=== PATIENT | male | born 1940 | race Caucasian/White ===

== ENCOUNTER 2020-03-23 12:19 | Emergency (ER) | payer MEDICARE, SELFPAY ==
--- NOTE | ~2020-03-23 | XR_ITS ---
EXAMINATION: XR shoulder LT min 2V EXAM DATE: 03/23/2020 13:27 INDICATION: Initial encounter following injury, with pain of the left shoulder. TECHNIQUE: The following left shoulder projections obtained: frontal projection , [place], and scapul ar Y view (4 views). There is no prior study for comparison. FINDINGS: There are acute closed posttraumatic comminuted fracture through the neck and greater tuber osity of the left humeral head. Only mild displacement. No shoulder dislocation. Glenoid is unremarka ble. IMPRESSION: Acute comminuted left humeral neck/greater tuberosity fractures. Reviewed, dictated and finalized at location A. [facility]
[2020-03-23 12:31] VITALS: BP 167/65; PULSE 88; RESP 20; TEMP 36.9; O2SAT 93
--- NOTE | 2020-03-23 12:39 | ECG_ITS ---
Measurements Intervals [place] Rate: 88 P: 134 OR: 155 QRS: 242 QRSD: 124 T: 149 QT: 389 QTc: 472 Interpretive Statements SINUS RHYTHM CONSIDER LIMB LEAD REVERSAL ATRIAL PREMATURE COMPLEXES INTRAVENTRICULAR CONDUCTION DELAY POOR R WAVE PROGRESSION, ANTERIOR LEADS BASELINE ARTIFACT- I, III, AVR, AVL BORDERLINE ECG Electronically Signed On 03-23-2020 13:22:25 [employer]EL[employer] by Juan Ramirez D.O.
--- NOTE | 2020-03-23 12:53 | ED.UPPEXIN ---
HPI - Extremity Injury (Upper) General Chief Complaint: Extremity Injury, Upper Stated Complaint: FALL, L SHOULDER PAIN Time Seen by Provider: 03/23/20 12:46 Source: patient and family Limitations: no limitations History of Present Illness HPI narrative: 79-year-old man States that last night he was trying to go down the steps from his house into his yard and his legs gave out and he fell Landed on left shoulder which hurts He is here with his daughter who states that he has chronic muscle weakness and falls are a recurring problem He denies being sick prior to falling, no lightheadedness no dizziness no palpitations no chest pains And continues to have no other complaints here today He did not strike his head he did not lose consciousness PMF Social History Social History Gender identity (if verbalized by the patient): Male Course Vital Signs Vital signs: Vital Signs Temperature 36.9 C 03/23/20 12:31 Pulse Rate 88 03/23/20 12:31 Respiratory Rate 20 03/23/20 12:31 Blood Pressure 167/65 H 03/23/20 12:31 Pulse Oximetry 93 03/23/20 12:31 Temperature 36.9 C 03/23/20 12:31 Pulse Rate 89 03/23/20 13:38 Respiratory Rate 20 03/23/20 13:38 Blood Pressure 155/99 H 03/23/20 13:38 Pulse Oximetry 94 03/23/20 13:38 MDM - Extremity Injury (Upper) Lab Data Result diagrams: 03/23/20 12:41 03/23/20 12:41 Labs: Lab Results 03/23/20 03/23/20 Range/Units 12:41 12:41 WBC 8.9 (4.5-10.0) K/mm3 RBC 4.95 (4.6-6.20) M/mm3 Hgb 13.7 L (14.0-18.0) g/dL Hct 43.5 (42.0-52.0) % MCV 87.9 (80-100) fl MCH 27.7 (26-34) pg MCHC 31.5 L (32-36) g/dl RDW 14.8 H (11.5-14.5) % Plt Count 222 (150-375) k/mm3 MPV 9.4 (7.4-10.4) fl Immature Gran % (Auto) 0.3 (0-0.5) % Neut % (Auto) 76.9 H (45.5-73.1) % Lymph % (Auto) 14.8 L (18.3-44.2) % [place] % (Auto) 7.4 (2.6-8.5) % Eos % (Auto) 0.3 (0-4.4) % Baso % (Auto) 0.3 (0.2-1.2) % Lymph # (Auto) 1.31 (0.9-3.2) K/mm3 [place] # (Auto) 0.7 H (0.1-0.6) K/mm3 Eos # (Auto) 0.0 (0-0.3) K/mm3 Baso # (Auto) 0.0 (0.0-0.1) K/mm3 Abs Immat Gran (auto) 0.03 (0.00-0.031) K/mm3 Absolute Neuts (auto) 6.8 H (1.3-6.7) K/mm3 Absolute Nucleated RBC 0.0 (0.0-0.012) K/mm3 Nucleated RBC % 0.0 (0.0-0.2) % Sodium 140 (137-145) mmol/L Potassium 4.5 (3.4-5.0) mmol/L Chloride 101 (98-107) mmol/L Carbon Dioxide 27 (22-30) mmol/L Anion Gap 12 (8-16) mmol/L BUN 45 H (9-20) mg/dL Creatinine 1.80 H (0.7-1.3) mg/dL Estim Creat Clear Calc 30 ml/min Estimated GFR 37 L (59 - ) Glucose 153 H (75-110) mg/dL Calcium 9.2 (8.4-10.2) mg/dL Total Bilirubin 1.3 (0.2-1.3) mg/dL AST 18 (17-59) U/L ALT 13 (4-50) U/L Alkaline Phosphatase 92 (38-126) U/L Total Protein 7.0 (6.3-8.2) g/dL Albumin 4.2 (3.5-5.1) g/dL Imaging Data Radiologist's impression: ITS Impressions Shoulder X-Ray 03/23/20 13:29 IMPRESSION: Acute comminuted left humeral neck/greater tuberosity fractures. ECG Data EKG #1: EKG Interpretation: normal rate, sinus rhythm, no ST changes, widened QRS, right axis and other (not a stemi) Discharge Plan Discharge Clinical Impression: Fracture of proximal end of left humerus Patient Disposition: Home, Self-Care Condition: Stable Instructions: Arm Fracture in Adults (ED), How to Use a Sling (ED) Prescriptions: New hydrocodone-acetaminophen [[place]] 5-325 mg tablet 1 tablet PO Q8H PRN (Reason: pain) Qty: 14 RF: 0 Follow-up/Referrals: Jean-Claude,Shantanu Moon MD [Primary Care Provider] - Jack Chiu MD [Physician] - (Next week, or, call Dr. Bermeo for an orthopedic referral)
[2020-03-23 12:58] LABS: Basophils Percent Auto 0.3 % (0.2-1.2); Eosinophils Percent Auto 0.3 % (0-4.4); Hematocrit 43.5 % (42.0-52.0); Hemoglobin 13.7 g/dL (14.0-18.0); Immature Granulocyte Absolute 0.03 K/mm3 (0.00-0.031); Immature Granulocyte Percent A 0.3 % (0-0.5); Lymphocytes Absolute Auto 1.31 K/mm3 (0.9-3.2); Lymphocytes Percent Auto 14.8 % (18.3-44.2); Mean Corpuscular HGB Conc 31.5 g/dl (32-36); Mean Corpuscular Hemoglobin 27.7 pg (26-34); Mean Corpuscular Volume 87.9 fl (80-100); Mean Platelet Volume 9.4 fl (7.4-10.4); Monocytes Absolute Auto 0.7 K/mm3 (0.1-0.6); Monocytes Percent Auto 7.4 % (2.6-8.5); Neutrophils Absolute Auto 6.8 K/mm3 (1.3-6.7); Neutrophils Percent Auto 76.9 % (45.5-73.1); Platelet Count Result 222 k/mm3 (150-375); Red Blood Count 4.95 M/mm3 (4.6-6.20); Red Cell Distribution Width 14.8 % (11.5-14.5); White Blood Count 8.9 K/mm3 (4.5-10.0)
[2020-03-23 13:10] LABS: Alanine Aminotransferase 13 U/L (4-50); Albumin Level 4.2 g/dL (3.5-5.1); Alkaline Phosphatase 92 U/L (38-126); Anion Gap 12 mmol/L (8-16); Aspartate Amino Transferase 18 U/L (17-59); Bilirubin,Total 1.3 mg/dL (0.2-1.3); Blood Urea Nitrogen 45 mg/dL (9-20); Calcium 9.2 mg/dL (8.4-10.2); Carbon Dioxide 27 mmol/L (22-30); Chloride 101 mmol/L (98-107); Estimated CRCL calculation 30 ml/min; Estimated Glomerular Filt Rate 37; Glucose 153 mg/dL (75-110); Potassium 4.5 mmol/L (3.4-5.0); Sodium 140 mmol/L (137-145)
[2020-03-23 13:38] VITALS: BP 155/99; PULSE 89; RESP 20; O2SAT 94
--- NOTE | 2020-03-23 13:52 | PC.NURSE ---
Pt unable to provide u/a at this time, declined straight cath, given urinal and will continue to try.
[2020-03-23 14:39] VITALS: BP 142/60; PULSE 84; RESP 22; O2SAT 95
--- NOTE | 2020-04-16 07:16 | ED.UPPEXIN ---
HPI - Extremity Injury (Upper) General Chief Complaint: Extremity Injury, Upper Stated Complaint: FALL, L SHOULDER PAIN Time Seen by Provider: 03/23/20 12:46 Source: patient and family Limitations: no limitations Related Data Allergies Allergy/AdvReac Type Severity Reaction Status Date / Time No Known Allergies Allergy Verified 03/23/20 14:08 Review of Systems Constitutional: Constitutional: Denies headache(s) ENT: Denies headache(s) Cardiovascular: Cardiovascular: Denies leg edema, Denies palpitations and Denies dyspnea Musculoskeletal: Musculoskeletal: Denies deformity, Denies muscle weakness and Denies numbness Integumentary/Breasts: Skin/Breast: Denies wounds Endocrine: Endocrine: Denies palpitations [facility] Social History Social History Gender identity (if verbalized by the patient): Male Exam Const: General: well developed and awake HENMT: Head: normocephalic and atraumatic General nose exam: No nasal discharge present Face and sinus: face symmetric Eyes: Sclera: sclerae normal Neck: Neck: supple and no JVD Other: nontender Chest: Chest palpation & inspection: deferred Resp: Auscultation: other (BS =) Other: nontender Cardio: Heart sounds: no gallops GI: Inspection: normal to inspection Back/Spine/Pelvis: Thoracic/Lumbar Spine: thoracic and lumbar spine normal to inspection Skin: General skin exam: no rashes or lesions noted Neuro: Cranial nerves: Yes facial symmetry Extrem: General: full ROM Course Vital Signs Vital signs: Vital Signs Temperature 36.9 C 03/23/20 12:31 Pulse Rate 88 03/23/20 12:31 Respiratory Rate 20 03/23/20 12:31 Blood Pressure 167/65 H 03/23/20 12:31 Pulse Oximetry 93 03/23/20 12:31 Temperature 36.9 C 03/23/20 12:31 Pulse Rate 84 03/23/20 14:39 Respiratory Rate 22 H 03/23/20 14:39 Blood Pressure 142/60 H 03/23/20 14:39 Pulse Oximetry 95 03/23/20 14:39 MDM - Extremity Injury (Upper) Lab Data Result diagrams: 03/23/20 12:41 03/23/20 12:41 Labs: Lab Results 03/23/20 03/23/20 Range/Units 12:41 12:41 WBC 8.9 (4.5-10.0) K/mm3 RBC 4.95 (4.6-6.20) M/mm3 Hgb 13.7 L (14.0-18.0) g/dL Hct 43.5 (42.0-52.0) % MCV 87.9 (80-100) fl MCH 27.7 (26-34) pg MCHC 31.5 L (32-36) g/dl RDW 14.8 H (11.5-14.5) % Plt Count 222 (150-375) k/mm3 MPV 9.4 (7.4-10.4) fl Immature Gran % (Auto) 0.3 (0-0.5) % Neut % (Auto) 76.9 H (45.5-73.1) % Lymph % (Auto) 14.8 L (18.3-44.2) % [place] % (Auto) 7.4 (2.6-8.5) % Eos % (Auto) 0.3 (0-4.4) % Baso % (Auto) 0.3 (0.2-1.2) % Lymph # (Auto) 1.31 (0.9-3.2) K/mm3 [place] # (Auto) 0.7 H (0.1-0.6) K/mm3 Eos # (Auto) 0.0 (0-0.3) K/mm3 Baso # (Auto) 0.0 (0.0-0.1) K/mm3 Abs Immat Gran (auto) 0.03 (0.00-0.031) K/mm3 Absolute Neuts (auto) 6.8 H (1.3-6.7) K/mm3 Absolute Nucleated RBC 0.0 (0.0-0.012) K/mm3 Nucleated RBC % 0.0 (0.0-0.2) % Sodium 140 (137-145) mmol/L Potassium 4.5 (3.4-5.0) mmol/L Chloride 101 (98-107) mmol/L Carbon Dioxide 27 (22-30) mmol/L Anion Gap 12 (8-16) mmol/L BUN 45 H (9-20) mg/dL Creatinine 1.80 H (0.7-1.3) mg/dL Estim Creat Clear Calc 30 ml/min Estimated GFR 37 L (59 - ) Glucose 153 H (75-110) mg/dL Calcium 9.2 (8.4-10.2) mg/dL Total Bilirubin 1.3 (0.2-1.3) mg/dL AST 18 (17-59) U/L ALT 13 (4-50) U/L Alkaline Phosphatase 92 (38-126) U/L Total Protein 7.0 (6.3-8.2) g/dL Albumin 4.2 (3.5-5.1) g/dL Discharge Plan Discharge Patient Disposition: Home, Self-Care Condition: Stable Prescriptions: New hydrocodone-acetaminophen [[place]] 5-325 mg tablet 1 tablet PO Q8H PRN (Reason: pain) Qty: 14 RF: 0
== END 2020-03-23 14:40 | disposition home or self-care (01) ==
PROVIDERS: Emergency Medicine; Emergency Provider Emergency Medicine; PCP Internal Medicine
DX: S42.252A Displaced fracture of greater tuberosity of left humerus, initial encounter for closed fracture (principal); S42.292A Other displaced fracture of upper end of left humerus, initial encounter for closed fracture; I49.1 Atrial premature depolarization; I45.9 Conduction disorder, unspecified; R94.31 Abnormal electrocardiogram [ECG] [EKG]; W10.9XXA Fall (on) (from) unspecified stairs and steps, initial encounter
CPT/HCPCS: 36415; 73030; 80053; 85025; 93005; 99284; A4565